=== PATIENT | female | born 1990 | race African-American/Black ===

== ENCOUNTER 2019-06-04 11:42 | Emergency (ER) | payer MEDICAID, OTHER ==
[~2019-06-04] VITALS: Ht 177.8 cm; Wt 61.0 kg
[2019-06-04] MEDS ORDERED: SILVER SULFADIAZINE 1% CREAM 50GM TOP STA (12:23)
[2019-06-04] MEDS ORDERED: TETANUS, DIPHTHERIA, PERTUSSIS VAC/PF 0.5ML (>7YR OLD) IM ONE (12:30)
[2019-06-04] MEDS ORDERED: HYDROCODONE/ACETAMINOPHEN 5/325MG TABLET PO ONE (12:30)
[2019-06-04] MEDS ORDERED: IBUPROFEN 400MG TABLET PO ONE (12:30)
[2019-06-04 14:31] VITALS: BP 122/74
== END 2019-06-04 14:36 | disposition home or self-care (01) ==
LOC: ER 11:42
DX: T24.212A Burn of second degree of left thigh, initial encounter (principal); T31.0 Burns involving less than 10% of body surface; J45.909 Unspecified asthma, uncomplicated; X12.XXXA Contact with other hot fluids, initial encounter; Y93.89 Activity, other specified; Y92.63 Factory as the place of occurrence of the external cause
CPT/HCPCS: 90471; 90715; 99284

== ENCOUNTER 2024-11-23 14:47 | Emergency (ER) | payer MEDICAID ==
[~2024-11-23] VITALS: Ht 170.2 cm; Wt 66.0 kg
[2024-11-23 15:03] VITALS: O2SAT 97
[2024-11-23] MEDS ORDERED: LIDOCAINE 5% PATCH TOP SCH (15:45)
[2024-11-23] MEDS: IBUPROFEN 600MG TABLET PO ONE (16:46)
[2024-11-23] MEDS ORDERED: IBUP-2029 MT (17:24)
[2024-11-23] MEDS ORDERED: LIDO700A30 TP (17:24)
[2024-11-23 17:49] VITALS: BP 121/64; PULSE 76; RESP 18; TEMP 37; O2SAT 99
== END 2024-11-23 17:52 | disposition home or self-care (01) ==
LOC: ER 14:47
DX: M54.89 Other dorsalgia (principal); M54.2 Cervicalgia; J45.909 Unspecified asthma, uncomplicated; V89.2XXA Person injured in unspecified motor-vehicle accident, traffic, initial encounter; Y93.89 Activity, other specified; Y92.410 Unspecified street and highway as the place of occurrence of the external cause; Y99.8 Other external cause status
CPT/HCPCS: 81025; 72040; 72070; 99284; Z7610 ×2

== ENCOUNTER 2025-04-23 09:20 | Emergency (ER) | payer MEDICAID ==
[~2025-04-23] VITALS: Ht 167.6 cm; Wt 68.0 kg
[~2025-04-23 09:20] MED LIST: IBUP-1455 MT; LIDO700A30 TP
[2025-04-23 09:22] VITALS: O2SAT 100
[2025-04-23 09:54] LABS: BASOPHILS % 1.2 % (0.0-2.0); EOSINOPHILS % 2.8 % (0.0-5.0); HEMATOCRIT. 40.7 % (36.0-48.0); HEMOGLOBIN. 13.6 g/dL (12.0-16.0); LYMPHOCYTES % 27.3 % (20.0-50.0); MEAN PLATELET VOLUME 8.2 fl (7.4-10.4); MONOCYTES % 6.3 % (2.0-8.0); NEUTROPHILS % 62.4 % (40.0-76.0); PLATELET 312 x1000/uL (130-400); RED BLOOD CELL COUNT 4.49 mill/uL (4.2-5.4); RED CELL DISTRIBUTION WIDTH 12.5 % (11.6-14.6)
[2025-04-23 10:52] LABS: CREATININE 0.7 mg/dL (0.6-1.0); UREA NITROGEN BLOOD < 5 mg/dL (9-23)
[2025-04-23 10:54] LABS: ASPARTATE AMINOTRANSFERASE 16 IU/L (<34); BILIRUBIN DIRECT 0.3 mg/dL (<=3.0); BILIRUBIN TOTAL 0.8 mg/dL (0.1-1.0); PROTEIN TOTAL 7.4 g/dL (6.0-8.3)
[2025-04-23 11:21] VITALS: BP 113/56; PULSE 69; RESP 21; TEMP 36.7; O2SAT 100
[2025-04-23 11:21] LABS: B-HCG QUANTITATIVE > 200000 mIU/mL (<6)
== END 2025-04-23 11:30 | disposition home or self-care (01) ==
LOC: ER 09:37
DX: O20.9 Hemorrhage in early pregnancy, unspecified (principal); O99.511 Diseases of the respiratory system complicating pregnancy, first trimester; J45.909 Unspecified asthma, uncomplicated; R10.20 Pelvic and perineal pain unspecified side; Z3A.11 11 weeks gestation of pregnancy
CPT/HCPCS: 36415; 76801; 80048; 80076; 83735; 84702; 85025; 86850; 86900; 99284